=== PATIENT | male | born 1955 | race Caucasian/White ===

== ENCOUNTER 2021-01-26 03:50 | Inpatient (IN) | payer MEDICARE ==
[2021-01-26] MEDS ORDERED: Bisacodyl 5 MG TAB PO PRN (08:29)
[2021-01-26] MEDS ORDERED: Guaifenesin DM 100-10/5 ML UDCUP PO PRN (08:29)
[2021-01-26] MEDS ORDERED: Acetaminophen 325 MG TAB PO PRN (08:29)
[2021-01-26] MEDS ORDERED: HYDROcodone/Acetaminophen 5/325 mg Tablet PO PRN (08:29)
[2021-01-26] MEDS ORDERED: Enoxaparin Sodium 40 MG/0.4 ML SYRINGE SC SCH (09:00)
[2021-01-26] MEDS ORDERED: Nitroglycerin 0.4 MG TAB (25 Tab Bottle) SL PRN ×3 (09:21→16:57)
[2021-01-26] MEDS ORDERED: Morphine 2 MG/ML VIAL SLOW IVP PRN (09:21)
[2021-01-26] MEDS ORDERED: Aspirin Chewable 81 MG TAB PO SCH (09:30)
[2021-01-26] MEDS ORDERED: Furosemide 100 MG/10 ML VIAL SLOW IVP SCH (09:30)
[2021-01-26 09:37] LABS: #Basophils 0.1 thou/uL (0.0-0.2); #Eosinphils 0.2 thou/uL (0.0-0.7); #Lymphocytes 1.7 thou/uL (1.20-3.40); #Monocytes 0.8 thou/uL (0.11-0.59); #Neutrophils 5.7 thou/uL (1.40-6.50); %Eosinophils 1.9 % (0.0-10.0); %Lymphocytes 20.1 % (21.0-51.0); %Monocytes 9.5 % (0.0-10.0); %Neutrophils 67.5 % (42.0-75.0); Hemoglobin 17.3 g/dL (14.0-18.0); Mean Corpuscular HGB CONC 33.1 g/dL (32.0-36.0); Mean Corpuscular Hemoglobin 31.9 pg (27.0-31.0); Mean Corpuscular Volume 96.4 fL (78.0-98.0); Mean Platelet Volume 9.9 fL (7.4-10.4); Platelet Count 146 thou/uL (130-400); RBC Distribution Width 13.2 % (11.5-14.5); Red Blood Cell (RBC) Count 5.42 mill/uL (4.70-6.10); White Blood Cell (WBC) Count 8.5 thou/uL (4.8-10.8)
[2021-01-26 10:00] LABS: Anion Gap 11 mmol/L (10-20); BUN (Urea Nitrogen) 10 mg/dL (8.4-25.7); Calc. Creatinine Clearance 132 mL/min (70-130); Calcium 9.1 mg/dL (7.8-10.44); Carbon Dioxide 24 mmol/L (23-31); Chloride 102 mmol/L (98-107); Glucose 128 mg/dL (80-115); Potassium 4.2 mmol/L (3.5-5.1); Sodium 133 mmol/L (136-145)
[2021-01-26 10:01] LABS: Magnesium 1.9 mg/dL (1.6-2.6)
[2021-01-26 10:29] LABS: CKMB 3.9 ng/mL (0-6.6)
[2021-01-26] MEDS ORDERED: cefTRIAXone\\ROCEPHIN 2 GM in Sodium Chloride 0.9% 100 ML IVPB SCH (11:00)
[2021-01-26] MEDS ORDERED: Communication Order-Pharmacy FS SCH ×2 (11:30→16:21)
[2021-01-26] MEDS ORDERED: Heparin 10,000 UNITS/ 10 ML VIAL ONE (11:38)
[2021-01-26] MEDS ORDERED: Verapamil 5 MG/2 ML VIAL ONE (11:38)
[2021-01-26] MEDS ORDERED: Nitroglycerin 100MG/250ML BOT 250 ML ONE (11:39)
[2021-01-26] MEDS ORDERED: Lidocaine 1% (PF) 30 ML VIAL ONE (11:39)
[2021-01-26] MEDS ORDERED: Midazolam HCl 2 mg/2 ml Vial ONE (12:29)
[2021-01-26] MEDS: cefTRIAXone\\ROCEPHIN 2 GM in Sodium Chloride 0.9% 100 ML IVPB SCH (15:28)
[2021-01-26] MEDS ORDERED: Acetaminophen/Codeine 30-300mg Tablet PO PRN ×4 (16:11→16:57)
[2021-01-26] MEDS ORDERED: Sodium Chloride 0.9% 200 ML IV PRN ×2 (16:11→16:57)
[2021-01-26] MEDS: Atorvastatin Calcium 40 MG TAB PO SCH (20:22)
[2021-01-26] MEDS: Diazepam 5 MG TAB PO PRN (23:10)
[2021-01-27 04:34] LABS: #Basophils 0.1 thou/uL (0.0-0.2); #Eosinphils 0.2 thou/uL (0.0-0.7); #Lymphocytes 1.7 thou/uL (1.20-3.40); #Monocytes 0.8 thou/uL (0.11-0.59); #Neutrophils 4.6 thou/uL (1.40-6.50); %Basophils 1.5 % (0.0-1.0); %Eosinophils 2.2 % (0.0-10.0); %Lymphocytes 23.4 % (21.0-51.0); %Monocytes 10.4 % (0.0-10.0); %Neutrophils 62.5 % (42.0-75.0); Hemoglobin 17.4 g/dL (14.0-18.0); Mean Corpuscular Hemoglobin 32.5 pg (27.0-31.0); Mean Corpuscular Volume 95.7 fL (78.0-98.0); Mean Platelet Volume 9.8 fL (7.4-10.4); Platelet Count 139 thou/uL (130-400); RBC Distribution Width 13.2 % (11.5-14.5); Red Blood Cell (RBC) Count 5.34 mill/uL (4.70-6.10); White Blood Cell (WBC) Count 7.4 thou/uL (4.8-10.8)
[2021-01-27 04:38] LABS: Hemoglobin A1c 6.7 % (4.0-6.0)
[2021-01-27 04:54] LABS: Anion Gap 13 mmol/L (10-20); BUN (Urea Nitrogen) 11 mg/dL (8.4-25.7); Calc. Creatinine Clearance 122 mL/min (70-130); Carbon Dioxide 24 mmol/L (23-31); Cardiac Risk 5.3 (Less than 4.5); Chloride 98 mmol/L (98-107); Cholesterol 159 mg/dl (< 200 Desired); Glucose 121 mg/dL (80-115); HDL Cholesterol 30 mg/dL (>60 Neg Risk); LDL Cholesterol, Calculated 105 mg/dL; Potassium 3.6 mmol/L (3.5-5.1); Sodium 131 mmol/L (136-145); Triglycerides 119 mg/dL (Less than 150)
[2021-01-27] MEDS: Furosemide 40 MG/4 ML VIAL SLOW IVP SCH ×2 (05:26→15:06)
[2021-01-27] MEDS ORDERED: Iopamidol 370 76% 100 ML VIAL ONE (08:52)
[2021-01-27] MEDS ORDERED: Aspirin 325 MG TAB PO SCH (09:00)
[2021-01-27] MEDS ORDERED: Pantoprazole 40 MG GRANULES PACKET PO SCH (09:00)
[2021-01-27] MEDS: cefTRIAXone\\ROCEPHIN 2 GM in Sodium Chloride 0.9% 100 ML IVPB SCH (15:05)
[2021-01-27] MEDS: Diazepam 5 MG TAB PO PRN (21:36)
[2021-01-27] MEDS: Atorvastatin Calcium 40 MG TAB PO SCH (21:37)
[2021-01-28 04:49] LABS: #Basophils 0.1 thou/uL (0.0-0.2); #Eosinphils 0.2 thou/uL (0.0-0.7); #Lymphocytes 2.2 thou/uL (1.20-3.40); #Monocytes 0.9 thou/uL (0.11-0.59); #Neutrophils 5.1 thou/uL (1.40-6.50); %Basophils 1.4 % (0.0-1.0); %Eosinophils 2.8 % (0.0-10.0); %Lymphocytes 25.2 % (21.0-51.0); %Monocytes 10.5 % (0.0-10.0); %Neutrophils 60.1 % (42.0-75.0); Mean Corpuscular HGB CONC 33.9 g/dL (32.0-36.0); Mean Corpuscular Hemoglobin 32.5 pg (27.0-31.0); Platelet Count 144 thou/uL (130-400); RBC Distribution Width 13.1 % (11.5-14.5); Red Blood Cell (RBC) Count 5.24 mill/uL (4.70-6.10); White Blood Cell (WBC) Count 8.5 thou/uL (4.8-10.8)
[2021-01-28 04:52] LABS: Anion Gap 14 mmol/L (10-20); BUN (Urea Nitrogen) 15 mg/dL (8.4-25.7); Calc. Creatinine Clearance 101 mL/min (70-130); Calcium 8.8 mg/dL (7.8-10.44); Carbon Dioxide 25 mmol/L (23-31); Chloride 98 mmol/L (98-107); Glucose 115 mg/dL (80-115); Potassium 3.7 mmol/L (3.5-5.1); Sodium 133 mmol/L (136-145)
[2021-01-28] MEDS ORDERED: ceFAZolin 2 GM/Dextrose 50 ML IVPB ONE (05:56)
[2021-01-28] MEDS ORDERED: Dexamethasone 4 mg/ml Vial ONE (06:26)
[2021-01-28] MEDS ORDERED: EPINEPHrine 1 MG/ML AMP ONE (06:26)
[2021-01-28] MEDS ORDERED: Bupivacaine PF 0.5% 30 ML VIAL ONE (06:26)
[2021-01-28] MEDS ORDERED: Albumin 5% 500 ML ONE (06:26)
[2021-01-28] MEDS ORDERED: Heparin 10,000 UNITS/1 ML VIAL 30,000 UNITS in Sodium Chloride 0.9% 1,000 ML FS SCH (06:45)
[2021-01-28] MEDS ORDERED: Midazolam HCl 2 mg/2 ml Vial ONE (06:49)
[2021-01-28] MEDS ORDERED: Sodium Chloride 0.9% 30 ML ONE (07:06)
[2021-01-28] MEDS ORDERED: Fentanyl 250 MCG/5 ML VIAL ONE (07:13)
[2021-01-28] MEDS ORDERED: Midazolam HCl 5 mg/5 ml Vial ONE (07:13)
[2021-01-28] MEDS ORDERED: Mannitol 12.5 GM/50 ML ONE (07:15)
[2021-01-28] MEDS ORDERED: Calcium Chloride 1 GM/10 ML Abboject SYRINGE ONE (07:15)
[2021-01-28] MEDS ORDERED: PROPOFOL 200 MG/20 ML VIAL ONE (07:15)
[2021-01-28] MEDS ORDERED: Papaverine 60 MG/2 ML VIAL ONE (07:15)
[2021-01-28] MEDS ORDERED: Aminocaproic Acid 5 GM/20 ML VIAL ONE (07:15)
[2021-01-28] MEDS ORDERED: Heparin 5,000 UNITS/ML VIAL ONE (07:15)
[2021-01-28] MEDS ORDERED: Cardioplegic Soln 1,000 ML BAG ONE (07:15)
[2021-01-28] MEDS ORDERED: Lidocaine 2% PF 100 mg/5 ml Syringe ONE (07:15)
[2021-01-28] MEDS ORDERED: Thrombin 5000 UNITS/5 ML VIAL ONE (07:15)
[2021-01-28] MEDS ORDERED: Rocuronium Bromide 10 MG/ML (10ML VIAL) ONE (07:15)
[2021-01-28] MEDS ORDERED: Magnesium Sulfate 1 GM/2 ML VIAL ONE (07:15)
[2021-01-28] MEDS ORDERED: Potassium Chloride 60 MEQ/30 ML VIAL ONE (07:15)
[2021-01-28] MEDS ORDERED: Heparin 30,000 units/30 ml VIAL ONE (07:15)
[2021-01-28] MEDS ORDERED: Sodium Bicarb 50 MEQ/50 ML Abboject 8.4% SYRINGE ONE (07:15)
[2021-01-28] MEDS: Furosemide 40 MG/4 ML VIAL SLOW IVP SCH (07:23)
[2021-01-28] MEDS ORDERED: ceFAZolin 2 GM/Dextrose 50 ML 2 GM in Premix Bag 1 BAG IVPB SCH (07:30)
[2021-01-28] MEDS ORDERED: Milrinone 10 MG/10 ML VIAL ONE (09:41)
[2021-01-28] MEDS ORDERED: Norepinephrine 4 MG/4 ML VIAL ONE ×2 (10:22→10:27)
[2021-01-28 11:41] LABS: Actual Bicarbonate (HCO3a) 22.3 mEq/L (22-28); Base Excess (BEa) -5.1 mEq/L (-2.0 to +3.0); Calcium, Ionized (arterial) 1.04 mmol/L (1.12-1.30); Carboxyhemoglobin (COHb) 0.9 gm% (0.0-3.0); Hemoglobin (Hb) 15.8 g/dL (14.0-18.0); O2 Tension (PaO2), arterial 62.5 mmHg (> 80.0); Potassium - ABG Lab 4.49 mmol/L (3.70-5.30); pH, Arterial 7.27 (7.35-7.45)
[2021-01-28 11:48] LABS: Puncture Site Arterial Line
[2021-01-28] MEDS ORDERED: Nitroglycerin 50 MG/250 ML BOT 250 ML IVPB PRN (11:58)
[2021-01-28] MEDS ORDERED: Hetastarch 6% 500 ML 500 ML IVPB PRN (11:58)
[2021-01-28] MEDS ORDERED: traMADol HCl 50 MG TAB PO PRN (11:58)
[2021-01-28] MEDS ORDERED: Bisacodyl 10 MG SUPP PR PRN (11:58)
[2021-01-28] MEDS ORDERED: Morphine 2 MG/ML VIAL SLOW IVP PRN ×2 (11:58→15:45)
[2021-01-28] MEDS ORDERED: Ondansetron PF 4 MG/2 ML Vial IVP PRN (11:58)
[2021-01-28] MEDS ORDERED: Bisacodyl 5 MG TAB PO PRN (11:58)
[2021-01-28] MEDS ORDERED: Magnesium 2 GM/50 ML 2 GM in Premix Bag 1 BAG IVPB SCH (11:58)
[2021-01-28] MEDS ORDERED: Fentanyl 100 MCG/2 ML VIAL SLOW IVP PRN ×2 (11:58)
[2021-01-28] MEDS ORDERED: Mag-Al 1200 mg/1200 mg/30 ML UDCUP PO PRN (11:58)
[2021-01-28] MEDS ORDERED: Potassium Chloride 20 MEQ/100 ML PREMIX BAG IVPB PRN (11:58)
[2021-01-28] MEDS ORDERED: Morphine 4 MG/ML VIAL ONE (12:13)
[2021-01-28 12:16] LABS: Mean Corpuscular HGB CONC 33.6 g/dL (32.0-36.0); Mean Corpuscular Hemoglobin 32.6 pg (27.0-31.0); Mean Platelet Volume 10.1 fL (7.4-10.4); Platelet Count 130 thou/uL (130-400); RBC Distribution Width 13.2 % (11.5-14.5); White Blood Cell (WBC) Count 21.1 thou/uL (4.8-10.8)
[2021-01-28] MEDS ORDERED: Nitroglycerin 50 MG/250 ML BOT 250 ML ONE (12:17)
[2021-01-28 12:21] LABS: INR-International Normal Ratio 1.2; PTT 30.3 sec (22.9-36.1)
[2021-01-28 12:30] LABS: Anion Gap 12 mmol/L (10-20); BUN (Urea Nitrogen) 15 mg/dL (8.4-25.7); Calc. Creatinine Clearance 93 mL/min (70-130); Calcium 7.7 mg/dL (7.8-10.44); Carbon Dioxide 24 mmol/L (23-31); Chloride 104 mmol/L (98-107); Glucose 168 mg/dL (80-115); Potassium 4.5 mmol/L (3.5-5.1); Sodium 135 mmol/L (136-145)
[2021-01-28 12:35] LABS: Band 12 % (5-11); Eosinophils 1 % (0-10); Lymphocytes 10 % (21-51); MDiff Complete? YES; Metamyelocyte 1 % (0-0); Monocytes 6 % (0-10); Myelocyte 1 % (0-0); Neutrophil 69 % (42-75); Platelet Morphology Comment Appears Adequate; RBC Morphology Normal
[2021-01-28] MEDS: Ketorolac Tromethamine 30 MG/ML VIAL IVP SCH ×2 (12:56→18:39)
[2021-01-28] MEDS: D5 1/2 NS w/20 mEq KCL 1,000 ML IV SCH (12:56)
[2021-01-28] MEDS: ceFAZolin 2 GM/Dextrose 50 ML 2 GM in Premix Bag 1 BAG IVPB SCH ×2 (13:11→21:24)
[2021-01-28] MEDS ORDERED: Furosemide 40 MG/4 ML VIAL SLOW IVP SCH (13:15)
[2021-01-28 14:52] LABS: CO2 Tension 44.4 mmHg (35.0-45.0); Calcium, Ionized (arterial) 1.04 mmol/L (1.12-1.30); Carboxyhemoglobin (COHb) 1.1 gm% (0.0-3.0); Hemoglobin (Hb) 15.9 g/dL (14.0-18.0); Potassium - ABG Lab 4.11 mmol/L (3.70-5.30); pH, Arterial 7.33 (7.35-7.45)
[2021-01-28] MEDS ORDERED: Propofol 1,000 MG/100 ML VIAL IV ONE (14:58)
[2021-01-28 15:01] LABS: O2 Tension (PaO2), arterial 49.9 mmHg (> 80.0); Puncture Site Arterial Line
[2021-01-28] MEDS ORDERED: Fentanyl CADD 100 ML ONE (15:09)
[2021-01-28] MEDS: Norepinephrine 8 MG/0.9% NS 250 ML IVPB PRN (15:33)
[2021-01-28] MEDS ORDERED: Fentanyl BOLUS 250 ML IVPB PRN (15:45)
[2021-01-28] MEDS ORDERED: DISCONTINUE PREVIOUS NARCOTIC PAIN MEDICATIONS AND BENZODIAZEPINES FS SCH (15:45)
[2021-01-28] MEDS ORDERED: Fentanyl CADD 100 ML IV SCH (15:45)
[2021-01-28] MEDS ORDERED: Lorazepam 2 MG/ML VIAL SLOW IVP PRN (15:45)
[2021-01-28] MEDS ORDERED: Propofol BOLUS 1,000 MG/100 ML VIAL IV PRN (15:45)
[2021-01-28] MEDS ORDERED: Propofol 1,000 MG/100 ML VIAL IV PRN (15:45)
[2021-01-28] MEDS ORDERED: Insulin Regular 300 UNITS/3 ML VIAL ONE (16:25)
[2021-01-28] MEDS: Insulin Regular 300 UNITS/3 ML VIAL SC PRN ×2 (16:37→21:24)
[2021-01-28 17:12] LABS: Hemoglobin 13.8 g/dL (14.0-18.0)
[2021-01-28 17:26] LABS: Potassium 4.4 mmol/L (3.5-5.1)
[2021-01-28] MEDS: Famotidine/PF 20 mg/2ml Vial SLOW IVP SCH (21:23)
[2021-01-29] MEDS: Ketorolac Tromethamine 30 MG/ML VIAL IVP SCH ×5 (00:11→23:30)
[2021-01-29] MEDS: Insulin Regular 300 UNITS/3 ML VIAL SC PRN ×4 (00:33→22:21)
[2021-01-29 03:57] LABS: #Lymphocytes 1.1 thou/uL (1.20-3.40); #Monocytes 0.9 thou/uL (0.11-0.59); #Neutrophils 10.4 thou/uL (1.40-6.50); %Basophils 0.4 % (0.0-1.0); %Eosinophils 0.1 % (0.0-10.0); %Lymphocytes 8.7 % (21.0-51.0); %Monocytes 7.5 % (0.0-10.0); %Neutrophils 83.4 % (42.0-75.0); Hemoglobin 14.2 g/dL (14.0-18.0); Mean Corpuscular HGB CONC 34.9 g/dL (32.0-36.0); Mean Corpuscular Hemoglobin 33.8 pg (27.0-31.0); Mean Corpuscular Volume 96.7 fL (78.0-98.0); Mean Platelet Volume 10.3 fL (7.4-10.4); Platelet Count 140 thou/uL (130-400); RBC Distribution Width 13.2 % (11.5-14.5); Red Blood Cell (RBC) Count 4.19 mill/uL (4.70-6.10); White Blood Cell (WBC) Count 12.4 thou/uL (4.8-10.8)
[2021-01-29 04:20] LABS: Anion Gap 11 mmol/L (10-20); BUN (Urea Nitrogen) 20 mg/dL (8.4-25.7); Calc. Creatinine Clearance 97 mL/min (70-130); Calcium 7.6 mg/dL (7.8-10.44); Carbon Dioxide 21 mmol/L (23-31); Chloride 107 mmol/L (98-107); Glucose 164 mg/dL (80-115); Potassium 4.1 mmol/L (3.5-5.1); Sodium 135 mmol/L (136-145)
[2021-01-29] MEDS: Norepinephrine 8 MG/0.9% NS 250 ML IVPB PRN (04:41)
[2021-01-29] MEDS: ceFAZolin 2 GM/Dextrose 50 ML 2 GM in Premix Bag 1 BAG IVPB SCH (06:02)
[2021-01-29 09:14] LABS: Base Excess (BEa) -1.1 mEq/L (-2.0 to +3.0); CO2 Tension 41.4 mmHg (35.0-45.0); Calcium, Ionized (arterial) 1.04 mmol/L (1.12-1.30); Carboxyhemoglobin (COHb) 0.1 gm% (0.0-3.0); Hemoglobin (Hb) 15.2 g/dL (14.0-18.0); O2 Tension (PaO2), arterial 69.3 mmHg (> 80.0); Potassium - ABG Lab 4.35 mmol/L (3.70-5.30); pH, Arterial 7.38 (7.35-7.45)
[2021-01-29 09:15] LABS: Puncture Site ART LINE
[2021-01-29] MEDS: Magnesium 2 GM/50 ML 2 GM in Premix Bag 1 BAG IVPB SCH (10:48)
[2021-01-29] MEDS: Aspirin 325 MG TAB PO SCH (10:48)
[2021-01-29] MEDS: Famotidine/PF 20 mg/2ml Vial SLOW IVP SCH ×2 (10:48→21:13)
[2021-01-29] MEDS: traMADol HCl 50 MG TAB PO PRN ×2 (12:23→23:29)
[2021-01-29] MEDS: D5 1/2 NS w/20 mEq KCL 1,000 ML IV SCH (15:45)
[2021-01-29] MEDS: Atorvastatin Calcium 40 MG TAB PO SCH (21:13)
[2021-01-30] MEDS: Insulin Regular 300 UNITS/3 ML VIAL SC PRN ×3 (01:00→08:16)
[2021-01-30 04:24] LABS: Anion Gap 11 mmol/L (10-20); BUN (Urea Nitrogen) 23 mg/dL (8.4-25.7); Calc. Creatinine Clearance 109 mL/min (70-130); Calcium 7.8 mg/dL (7.8-10.44); Carbon Dioxide 25 mmol/L (23-31); Chloride 104 mmol/L (98-107); Glucose 123 mg/dL (80-115); Potassium 3.9 mmol/L (3.5-5.1); Sodium 136 mmol/L (136-145)
[2021-01-30 04:35] LABS: #Basophils 0.1 thou/uL (0.0-0.2); #Lymphocytes 1.8 thou/uL (1.20-3.40); #Monocytes 0.8 thou/uL (0.11-0.59); #Neutrophils 8.3 thou/uL (1.40-6.50); %Basophils 0.9 % (0.0-1.0); %Eosinophils 0.3 % (0.0-10.0); %Lymphocytes 16.1 % (21.0-51.0); %Monocytes 7.4 % (0.0-10.0); %Neutrophils 75.4 % (42.0-75.0); Hemoglobin 13.3 g/dL (14.0-18.0); Mean Corpuscular HGB CONC 34.7 g/dL (32.0-36.0); Mean Corpuscular Hemoglobin 34.1 pg (27.0-31.0); Mean Corpuscular Volume 98.1 fL (78.0-98.0); Mean Platelet Volume 10.9 fL (7.4-10.4); Platelet Count 99 thou/uL (130-400); RBC Distribution Width 13.4 % (11.5-14.5); Red Blood Cell (RBC) Count 3.91 mill/uL (4.70-6.10); White Blood Cell (WBC) Count 10.9 thou/uL (4.8-10.8)
[2021-01-30] MEDS: Ketorolac Tromethamine 30 MG/ML VIAL IVP SCH ×3 (05:14→17:54)
[2021-01-30] MEDS: Famotidine/PF 20 mg/2ml Vial SLOW IVP SCH (09:18)
[2021-01-30] MEDS: Aspirin 325 MG TAB PO SCH (09:18)
[2021-01-30] MEDS: Magnesium 2 GM/50 ML 2 GM in Premix Bag 1 BAG IVPB SCH (09:19)
[2021-01-30] MEDS ORDERED: Nitroglycerin 0.4 MG TAB (25 Tab Bottle) SL PRN (09:28)
[2021-01-30] MEDS: metFORMIN 500 MG TAB PO SCH (17:54)
[2021-01-30] MEDS: Atorvastatin Calcium 40 MG TAB PO SCH (21:42)
[2021-01-30] MEDS: Acetaminophen 325 MG TAB PO PRN (21:42)
[2021-01-30] MEDS: Tamsulosin HCl 0.4 MG CAP PO SCH (21:43)
[2021-01-31] MEDS: Ketorolac Tromethamine 30 MG/ML VIAL IVP SCH ×3 (00:13→11:25)
[2021-01-31] MEDS ORDERED: Furosemide 20 MG TAB PO SCH (09:00)
[2021-01-31] MEDS: Furosemide 20 MG TAB PO SCH (09:13)
[2021-01-31] MEDS: Potassium Chloride 10 MEQ TAB PO SCH (09:13)
[2021-01-31] MEDS: metFORMIN 500 MG TAB PO SCH ×2 (09:13→18:05)
[2021-01-31] MEDS: Polyethylene Glycol 3350 17 GM Packet PO SCH (09:13)
[2021-01-31] MEDS: Aspirin 325 mg Enteric Coated Tablet PO SCH (09:13)
[2021-01-31] MEDS: Tamsulosin HCl 0.4 MG CAP PO SCH (20:37)
[2021-01-31] MEDS: Atorvastatin Calcium 40 MG TAB PO SCH (20:37)
[2021-01-31] MEDS: Acetaminophen 325 MG TAB PO PRN (20:43)
[2021-01-31] MEDS: Guaifenesin DM 100-10/5 ML UDCUP PO PRN (20:44)
[2021-02-01] MEDS: traMADol HCl 50 MG TAB PO PRN (07:56)
[2021-02-01] MEDS: Furosemide 20 MG TAB PO SCH (07:58)
[2021-02-01] MEDS: Aspirin 325 mg Enteric Coated Tablet PO SCH (07:58)
[2021-02-01] MEDS: Potassium Chloride 10 MEQ TAB PO SCH (07:58)
[2021-02-01] MEDS: metFORMIN 500 MG TAB PO SCH ×2 (07:58→16:48)
[2021-02-01] MEDS: Polyethylene Glycol 3350 17 GM Packet PO SCH (07:58)
[2021-02-01] MEDS ORDERED: Furosemide 40 MG/4 ML VIAL SLOW IVP SCH (09:15)
[2021-02-01] MEDS ORDERED: Spironolactone 25 MG TAB PO SCH ×2 (09:30)
[2021-02-01] MEDS ORDERED: Communication Order-Pharmacy FS SCH (10:00)
[2021-02-01] MEDS: Morphine 4 MG/ML VIAL SLOW IVP PRN ×2 (12:20→16:49)
[2021-02-01] MEDS ORDERED: Iopamidol 370 76% 50 ML VIAL FS ONE (14:27)
[2021-02-01] MEDS ORDERED: Iopamidol 370 76% 100 ML VIAL ONE (14:27)
[2021-02-01] MEDS ORDERED: Lidocaine 1% (PF) 30 ML VIAL ONE (14:51)
[2021-02-01 14:53] LABS: Actual Bicarbonate (HCO3a) 27.3 mEq/L (22-28); Analyzer IN Cardio OR; Calcium, Ionized (arterial) 1.03 mmol/L (1.12-1.30); Carboxyhemoglobin (COHb) 0.9 gm% (0.0-3.0); O2 Tension (PaO2), arterial 78.5 mmHg (> 80.0); Potassium - ABG Lab 3.93 mmol/L (3.70-5.30); pH, Arterial 7.27 (7.35-7.45)
[2021-02-01 14:53] LABS: Actual Bicarbonate (HCO3a) 23.8 mEq/L (22-28); Analyzer IN Cardio OR; CO2 Tension 39.9 mmHg (35.0-45.0); Calcium, Ionized (arterial) 1.05 mmol/L (1.12-1.30); Carboxyhemoglobin (COHb) 1.1 gm% (0.0-3.0); O2 Tension (PaO2), arterial 132.7 mmHg (> 80.0); Potassium - ABG Lab 3.43 mmol/L (3.70-5.30); pH, Arterial 7.39 (7.35-7.45)
[2021-02-01 15:03] LABS: Actual Bicarbonate (HCO3a) 23.6 mEq/L (22-28); Analyzer IN Cardio OR; Base Excess (BEa) -1.1 mEq/L (-2.0 to +3.0); CO2 Tension 39.5 mmHg (35.0-45.0); Calcium, Ionized (arterial) 0.97 mmol/L (1.12-1.30); Carboxyhemoglobin (COHb) 0.5 gm% (0.0-3.0); Hemoglobin (Hb) 13.6 g/dL (14.0-18.0); O2 Tension (PaO2), arterial 403.6 mmHg (> 80.0); Potassium - ABG Lab 6.42 mmol/L (3.70-5.30); pH, Arterial 7.39 (7.35-7.45)
[2021-02-01 15:04] LABS: Actual Bicarbonate (HCO3a) 24.7 mEq/L (22-28); Analyzer IN Cardio OR; Base Excess (BEa) 0.1 mEq/L (-2.0 to +3.0); Calcium, Ionized (arterial) 1.22 mmol/L (1.12-1.30); Carboxyhemoglobin (COHb) 0.4 gm% (0.0-3.0); Hemoglobin (Hb) 12.7 g/dL (14.0-18.0); pH, Arterial 7.41 (7.35-7.45)
[2021-02-01 15:04] LABS: Actual Bicarbonate (HCO3v) 26 mEq/L (22-28); Analyzer IN Cardio OR; Base Excess -0.3 mEq/L (-2.0 to +3.0); Calcium, Ionized (venous) 0.99 mmol/L (1.16-1.32); Chloride (VBG) 101 mmol/L (98-106); Hemoglobin (Hb) 13.9 g/dL (12.6-17.4); Sodium 132.8 mmol/L (133-146); pH (venous) 7.34 (7.32-7.43)
[2021-02-01 15:04] LABS: Actual Bicarbonate (HCO3a) 20.3 mEq/L (22-28); Analyzer IN Cardio OR; Base Excess (BEa) -5.5 mEq/L (-2.0 to +3.0); CO2 Tension 40.5 mmHg (35.0-45.0); Calcium, Ionized (arterial) 1.04 mmol/L (1.12-1.30); Hemoglobin (Hb) 14.6 g/dL (14.0-18.0); O2 Tension (PaO2), arterial 74.6 mmHg (> 80.0); Potassium - ABG Lab 4.57 mmol/L (3.70-5.30); pH, Arterial 7.32 (7.35-7.45)
[2021-02-01 15:05] LABS: Puncture Site Arterial Line
[2021-02-01 15:06] LABS: Puncture Site Arterial Line
[2021-02-01 15:06] LABS: CO2 Tension 60.3 mmHg (35.0-45.0); Puncture Site Arterial Line
[2021-02-01 15:07] LABS: Puncture Site Arterial Line
[2021-02-01 15:07] LABS: Puncture Site Arterial Line
[2021-02-01] MEDS: Tamsulosin HCl 0.4 MG CAP PO SCH (20:56)
[2021-02-01] MEDS: Atorvastatin Calcium 40 MG TAB PO SCH (20:59)
[2021-02-01] MEDS ORDERED: Sodium Chloride 0.9% 200 ML IV PRN (22:54)
[2021-02-01] MEDS ORDERED: Nitroglycerin 0.4 MG TAB (25 Tab Bottle) SL PRN (22:54)
[2021-02-02] MEDS: Potassium Chloride 10 MEQ TAB PO SCH (08:28)
[2021-02-02] MEDS: Aspirin 325 mg Enteric Coated Tablet PO SCH (08:28)
[2021-02-02] MEDS: Furosemide 20 MG TAB PO SCH (08:28)
[2021-02-02] MEDS: Spironolactone 25 MG TAB PO SCH (08:28)
[2021-02-02] MEDS: metFORMIN 500 MG TAB PO SCH ×2 (08:29→16:24)
[2021-02-02] MEDS: Polyethylene Glycol 3350 17 GM Packet PO SCH (08:29)
[2021-02-02] MEDS: Acetaminophen/Codeine 30-300mg Tablet PO PRN (08:35)
[2021-02-02] MEDS ORDERED: Clopidogrel Bisulfate 75 MG TAB PO SCH (10:30)
[2021-02-02] MEDS ORDERED: Furosemide 40 MG/4 ML VIAL SLOW IVP SCH (11:45)
[2021-02-02] MEDS: Tamsulosin HCl 0.4 MG CAP PO SCH (21:18)
[2021-02-02] MEDS: Morphine 4 MG/ML VIAL SLOW IVP PRN (21:18)
[2021-02-02] MEDS: Atorvastatin Calcium 40 MG TAB PO SCH (21:18)
[2021-02-03] MEDS: Morphine 4 MG/ML VIAL SLOW IVP PRN ×2 (02:44→08:25)
[2021-02-03 05:12] LABS: Band 4 % (5-11); Eosinophils 4 % (0-10); Hemoglobin 13.6 g/dL (14.0-18.0); Lymphocytes 26 % (21-51); MDiff Complete? YES; Mean Corpuscular HGB CONC 34.7 g/dL (32.0-36.0); Mean Corpuscular Hemoglobin 33.6 pg (27.0-31.0); Mean Platelet Volume 9.5 fL (7.4-10.4); Monocytes 13 % (0-10); Neutrophil 50 % (42-75); Platelet Count 180 thou/uL (130-400); Platelet Morphology Comment Appears Adequate; RBC Distribution Width 13.1 % (11.5-14.5); RBC Morphology Normal; Reactive Lymphocytes 3 % (0-10); Red Blood Cell (RBC) Count 4.03 mill/uL (4.70-6.10); White Blood Cell (WBC) Count 7.4 thou/uL (4.8-10.8)
[2021-02-03 05:13] LABS: ALT (SGPT) 12 U/L (8-55); AST (SGOT) 17 U/L (5-34); Albumin 2.7 g/dL (3.4-4.8); Alkaline Phosphatase 66 U/L (40-110); Anion Gap 13 mmol/L (10-20); BUN (Urea Nitrogen) 15 mg/dL (8.4-25.7); Bilirubin, Total 1.3 mg/dL (0.2-1.2); Calc. Creatinine Clearance 137 mL/min (70-130); Calcium 8.1 mg/dL (7.8-10.44); Carbon Dioxide 25 mmol/L (23-31); Chloride 98 mmol/L (98-107); Glucose 101 mg/dL (80-115); Potassium 3.6 mmol/L (3.5-5.1); Protein, Total 5.7 g/dL (5.8-8.1); Sodium 132 mmol/L (136-145)
[2021-02-03] MEDS: Spironolactone 25 MG TAB PO SCH (08:15)
[2021-02-03] MEDS: Potassium Chloride 10 MEQ TAB PO SCH ×2 (08:15→16:38)
[2021-02-03] MEDS: Aspirin 325 mg Enteric Coated Tablet PO SCH (08:15)
[2021-02-03] MEDS: metFORMIN 500 MG TAB PO SCH ×2 (08:15→16:38)
[2021-02-03] MEDS: Furosemide 20 MG TAB PO SCH (08:16)
[2021-02-03] MEDS: Polyethylene Glycol 3350 17 GM Packet PO SCH (08:16)
[2021-02-03] MEDS: Clopidogrel Bisulfate 75 MG TAB PO SCH (08:18)
[2021-02-03] MEDS ORDERED: Metolazone 5 MG TAB PO SCH (09:00)
[2021-02-03] MEDS ORDERED: Furosemide 40 MG TAB PO SCH (14:45)
[2021-02-03] MEDS: Acetaminophen/Codeine 30-300mg Tablet PO PRN ×2 (16:41→22:02)
[2021-02-03] MEDS ORDERED: Carvedilol 3.125 MG TAB PO SCH (20:00)
[2021-02-03] MEDS: Atorvastatin Calcium 40 MG TAB PO SCH (22:02)
[2021-02-03] MEDS: Tamsulosin HCl 0.4 MG CAP PO SCH (22:03)
[2021-02-04 04:40] VITALS: BMI 33.9
[2021-02-04 04:41] LABS: ALT (SGPT) 16 U/L (8-55); AST (SGOT) 24 U/L (5-34); Alkaline Phosphatase 69 U/L (40-110); Anion Gap 11 mmol/L (10-20); BUN (Urea Nitrogen) 16 mg/dL (8.4-25.7); Bilirubin, Total 1.7 mg/dL (0.2-1.2); Calc. Creatinine Clearance 108 mL/min (70-130); Calcium 8.9 mg/dL (7.8-10.44); Carbon Dioxide 30 mmol/L (23-31); Chloride 93 mmol/L (98-107); Globulin 3.3 g/dL (2.4-3.5); Glucose 107 mg/dL (80-115); Potassium 3.5 mmol/L (3.5-5.1); Protein, Total 6.3 g/dL (5.8-8.1); Sodium 130 mmol/L (136-145)
[2021-02-04 04:51] LABS: Hemoglobin 13.9 g/dL (14.0-18.0); Mean Corpuscular HGB CONC 33.4 g/dL (32.0-36.0); Mean Corpuscular Volume 95.8 fL (78.0-98.0); Mean Platelet Volume 9.3 fL (7.4-10.4); Platelet Count 214 thou/uL (130-400); RBC Distribution Width 13.1 % (11.5-14.5); Red Blood Cell (RBC) Count 4.34 mill/uL (4.70-6.10); White Blood Cell (WBC) Count 7.7 thou/uL (4.8-10.8)
[2021-02-04 05:44] LABS: MDiff Complete? YES
[2021-02-04 05:45] LABS: Band 10 % (5-11); Eosinophils 2 % (0-10); Lymphocytes 34 % (21-51); Monocytes 7 % (0-10); Neutrophil 47 % (42-75)
[2021-02-04] MEDS: Acetaminophen/Codeine 30-300mg Tablet PO PRN ×2 (05:51→20:56)
[2021-02-04] MEDS: metFORMIN 500 MG TAB PO SCH ×2 (08:23→16:14)
[2021-02-04] MEDS: Carvedilol 3.125 MG TAB PO SCH ×2 (08:24→16:14)
[2021-02-04] MEDS: Spironolactone 25 MG TAB PO SCH (08:24)
[2021-02-04] MEDS: Polyethylene Glycol 3350 17 GM Packet PO SCH (08:25)
[2021-02-04] MEDS: Aspirin 325 mg Enteric Coated Tablet PO SCH (08:25)
[2021-02-04] MEDS: Furosemide 40 MG TAB PO SCH ×2 (08:25→15:00)
[2021-02-04] MEDS: Potassium Chloride 10 MEQ TAB PO SCH ×2 (08:26→16:14)
[2021-02-04] MEDS: Clopidogrel Bisulfate 75 MG TAB PO SCH (08:26)
[2021-02-04] MEDS ORDERED: Metolazone 5 MG TAB PO SCH (09:00)
[2021-02-04] MEDS ORDERED: Furosemide 40 MG TAB PO SCH (14:00)
[2021-02-04] MEDS ORDERED: Lisinopril 5 MG TAB PO SCH (15:45)
[2021-02-04] MEDS: Atorvastatin Calcium 40 MG TAB PO SCH (20:56)
[2021-02-04] MEDS: Tamsulosin HCl 0.4 MG CAP PO SCH (20:56)
[2021-02-05] MEDS: Guaifenesin DM 100-10/5 ML UDCUP PO PRN ×2 (00:02→09:06)
[2021-02-05 04:35] LABS: Hemoglobin 14.6 g/dL (14.0-18.0); Mean Corpuscular HGB CONC 35.3 g/dL (32.0-36.0); Mean Corpuscular Hemoglobin 33.5 pg (27.0-31.0); Mean Platelet Volume 9.2 fL (7.4-10.4); Platelet Count 252 thou/uL (130-400); Red Blood Cell (RBC) Count 4.36 mill/uL (4.70-6.10); White Blood Cell (WBC) Count 9.4 thou/uL (4.8-10.8)
[2021-02-05 04:49] LABS: ALT (SGPT) 14 U/L (8-55); AST (SGOT) 25 U/L (5-34); Albumin 3.2 g/dL (3.4-4.8); Alkaline Phosphatase 74 U/L (40-110); Anion Gap 16 mmol/L (10-20); BUN (Urea Nitrogen) 22 mg/dL (8.4-25.7); Bilirubin, Total 1.5 mg/dL (0.2-1.2); Calc. Creatinine Clearance 78 mL/min (70-130); Calcium 8.9 mg/dL (7.8-10.44); Carbon Dioxide 27 mmol/L (23-31); Chloride 89 mmol/L (98-107); Globulin 3.6 g/dL (2.4-3.5); Glucose 115 mg/dL (80-115); Potassium 3.1 mmol/L (3.5-5.1); Protein, Total 6.8 g/dL (5.8-8.1); Sodium 129 mmol/L (136-145)
[2021-02-05 06:27] LABS: Band 1 % (5-11); Eosinophils 5 % (0-10); Lymphocytes 12 % (21-51); MDiff Complete? YES; Monocytes 19 % (0-10); Neutrophil 62 % (42-75); Reactive Lymphocytes 1 % (0-10)
[2021-02-05] MEDS ORDERED: Cepastat Lozenges 1 LOZ PO PRN (07:39)
[2021-02-05] MEDS ORDERED: Loperamide HCl 2 MG CAP PO PRN (07:39)
[2021-02-05] MEDS ORDERED: Artificial Tear Sol 15 ML BOT EA EYE PRN (07:39)
[2021-02-05] MEDS ORDERED: HYDROcodone/Acetaminophen 5/325 mg Tablet PO PRN (07:39)
[2021-02-05] MEDS ORDERED: Ondansetron ODT 4 MG TAB PO PRN (07:39)
[2021-02-05] MEDS ORDERED: GUAIFENESIN SF SOLN 200 MG/10 ML UDCUP PO PRN (07:39)
[2021-02-05] MEDS ORDERED: Sodium Chloride 0.65% Nasal 44 ML BOT EA NARE PRN (07:39)
[2021-02-05] MEDS ORDERED: Hydrocerin (Eucerin) Cream 120 gm Jar TOP PRN (07:39)
[2021-02-05] MEDS ORDERED: Loratadine 10 MG TAB PO PRN (07:39)
[2021-02-05] MEDS ORDERED: Benzonatate 100 MG CAP PO PRN (07:39)
[2021-02-05] MEDS ORDERED: Zolpidem Tartrate 5 MG TAB PO PRN (07:39)
[2021-02-05] MEDS ORDERED: Calcium Carbonate 500 MG ChewTAB PO PRN (07:39)
[2021-02-05] MEDS ORDERED: hydrALAZINE 20 MG/ML VIAL SLOW IVP PRN (07:39)
[2021-02-05] MEDS ORDERED: Senokot S 8.6-50 MG TAB PO PRN (07:39)
[2021-02-05] MEDS ORDERED: Lisinopril 5 MG TAB PO SCH (09:00)
[2021-02-05] MEDS: Clopidogrel Bisulfate 75 MG TAB PO SCH (09:06)
[2021-02-05] MEDS: metFORMIN 500 MG TAB PO SCH (09:06)
[2021-02-05] MEDS: Potassium Chloride 10 MEQ TAB PO SCH (09:07)
[2021-02-05] MEDS: Aspirin 325 mg Enteric Coated Tablet PO SCH (09:07)
[2021-02-05] MEDS: Spironolactone 25 MG TAB PO SCH (09:07)
[2021-02-05] MEDS: Carvedilol 3.125 MG TAB PO SCH (09:07)
[2021-02-05] MEDS: Furosemide 40 MG TAB PO SCH (09:08)
[2021-02-05] MEDS: Polyethylene Glycol 3350 17 GM Packet PO SCH (09:08)
[2021-02-05] MEDS: Acetaminophen/Codeine 30-300mg Tablet PO PRN (09:51)
[2021-02-05 10:58] LABS: Magnesium 1.7 mg/dL (1.6-2.6); Potassium 3.5 mmol/L (3.5-5.1)
[2021-02-05] MEDS ORDERED: Magnesium 2 GM/50 ML 2 GM in Premix Bag 1 BAG IVPB SCH (11:30)
[2021-02-05 12:54] VITALS: BP 98/57; TEMP 98.5
== END 2021-02-05 13:37 | DRG 233 ==
LOC: 2NO 07:02 → CCU 01-28 08:05 → 2NO 01-30 16:30
PROVIDERS: ADMIT Student in an Organized Health Care Education/Training Program; ATTEND Internal Medicine
PROC: 4A023N7 Measurement of Cardiac Sampling and Pressure, Left Heart, Percutaneous Approach (ICD-10-PCS; principal; 2021-01-26)
PROC: B2151ZZ Fluoroscopy of Left Heart using Low Osmolar Contrast (ICD-10-PCS; 2021-01-26)
PROC: B2111ZZ Fluoroscopy of Multiple Coronary Arteries using Low Osmolar Contrast (ICD-10-PCS; 2021-01-26)
PROC: 02100Z9 Bypass Coronary Artery, One Artery from Left Internal Mammary, Open Approach (ICD-10-PCS; 2021-01-28)
PROC: 021109W Bypass Coronary Artery, Two Arteries from Aorta with Autologous Venous Tissue, Open Approach (ICD-10-PCS; 2021-01-28)
PROC: 06BQ4ZZ Excision of Left Saphenous Vein, Percutaneous Endoscopic Approach (ICD-10-PCS; 2021-01-28)
PROC: 5A1221Z Performance of Cardiac Output, Continuous (ICD-10-PCS; 2021-01-28)
PROC: 3E033XZ Introduction of Vasopressor into Peripheral Vein, Percutaneous Approach (ICD-10-PCS; 2021-01-29)
PROC: 4A023N7 Measurement of Cardiac Sampling and Pressure, Left Heart, Percutaneous Approach (ICD-10-PCS; 2021-02-01)
PROC: B2151ZZ Fluoroscopy of Left Heart using Low Osmolar Contrast (ICD-10-PCS; 2021-02-01)
PROC: B2131ZZ Fluoroscopy of Multiple Coronary Artery Bypass Grafts using Low Osmolar Contrast (ICD-10-PCS; 2021-02-01)
DX: I21.4 Non-ST elevation (NSTEMI) myocardial infarction (principal); I50.23 Acute on chronic systolic (congestive) heart failure; J18.9 Pneumonia, unspecified organism; J44.0 Chronic obstructive pulmonary disease with (acute) lower respiratory infection; Z20.822 Contact with and (suspected) exposure to COVID-19; I25.10 Atherosclerotic heart disease of native coronary artery without angina pectoris; K21.9 Gastro-esophageal reflux disease without esophagitis; E78.5 Hyperlipidemia, unspecified; F17.200 Nicotine dependence, unspecified, uncomplicated; E78.00 Pure hypercholesterolemia, unspecified; E66.9 Obesity, unspecified; E11.9 Type 2 diabetes mellitus without complications; I95.9 Hypotension, unspecified; R09.02 Hypoxemia; I11.0 Hypertensive heart disease with heart failure; Z79.82 Long term (current) use of aspirin; Z98.890 Other specified postprocedural states; Z86.73 Personal history of transient ischemic attack (TIA), and cerebral infarction without residual deficits; Z68.33 Body mass index [BMI] 33.0-33.9, adult
CPT/HCPCS: 36415; 36416; 36430; 71045; 74174; 80048; 80053; 80061; 82553; 82805; 83036; 83735; 83880; 84484; 85025; 85379; 85610; 85730; 86850; 86900; 86901; 93005; 93010; 93306; 93458; 93459; 93798; 93880; 94002; 94003; 94640; 94760; 99152; 99153; J0171; J0690; J0696; J1100; J1642; J1644; J1815; J1885; J1940; J2001; J2150; J2250; J2260; J2270; J2440; J2704; J3010; J3370; J3475; J3480; J3490; J7620; P9045; Q9967; S0017; S0020; S0028

== ENCOUNTER 2021-02-24 12:11 | Outpatient (CLI) | payer MEDICARE | END 2021-02-24 12:12 | disposition home or self-care (01) | LOC: BICRAD 12:11 | PROVIDERS: ATTEND Internal Medicine Cardiovascular Disease | DX: R06.02 Shortness of breath (principal) | CPT/HCPCS: 71046 ==